=== PATIENT | male | born 1990 | race Caucasian/White ===

== ENCOUNTER 2018-09-29 20:47 | Emergency (ER) | payer OTHER, SELFPAY ==
[~2018-09-29] VITALS: Ht 177.8 cm; Wt 57.5 kg
[2018-09-29 21:17] VITALS: BP 105/66
== END 2018-09-29 22:22 | disposition left against medical advice (07) ==
LOC: ED 22:15
DX: R10.13 Epigastric pain (principal); Z53.21 Procedure and treatment not carried out due to patient leaving prior to being seen by health care provider

== ENCOUNTER 2019-12-20 18:41 | Emergency (ER) | payer MEDICAID, OTHER ==
[~2019-12-20] VITALS: Ht 180.3 cm; Wt 64.5 kg
[2019-12-20] MEDS ORDERED: ACETAMINOPHEN 325 MG TABLET ONE (19:30)
[2019-12-20] MEDS ORDERED: LIDOCAINE-MPF 1%, 5ML ONE (19:30)
[2019-12-20] MEDS ORDERED: ACETAMINOPHEN 325 MG TABLET PO ONE (19:30)
[2019-12-20] MEDS ORDERED: LIDOCAINE 1%, 10ML INFIL ONE (19:30)
[2019-12-20 20:25] VITALS: BP 138/82
--- NOTE | 2019-12-20 20:26 | NUR ---
Pt discharge with extra wound supplies, educated on the importance of getting antibotics and comging back in 2 days to get wound checked out. Patient stated that he understood.
== END 2019-12-20 20:28 | disposition home or self-care (01) ==
LOC: ED 19:17
DX: L02.414 Cutaneous abscess of left upper limb (principal); L03.114 Cellulitis of left upper limb
CPT/HCPCS: 10060; 99283; J3490

== ENCOUNTER 2019-12-23 22:34 | Emergency (ER) | payer MEDICAID ==
[~2019-12-23] VITALS: Ht 180.3 cm; Wt 62.7 kg
[2019-12-23 22:35] VITALS: BP 109/63
--- NOTE | 2019-12-23 23:00 | NUR ---
dressing applied, dc home with instruct. pt verbalizes understanding.
--- NOTE | 2019-12-23 23:31 | NUR ---
went to give pt dc instruct, pt gone. he did have wound dressed.
== END 2019-12-23 23:44 | disposition home or self-care (01) ==
LOC: ED 22:54
DX: Z48.01 Encounter for change or removal of surgical wound dressing (principal); F17.200 Nicotine dependence, unspecified, uncomplicated
CPT/HCPCS: 99281

== ENCOUNTER 2020-07-05 09:57 | Emergency (ER) | payer MEDICAID ==
[~2020-07-05] VITALS: Ht 180.3 cm; Wt 62.2 kg
[2020-07-05 09:59] VITALS: BP 117/69
== END 2020-07-05 11:17 | disposition left against medical advice (07) ==
LOC: ED 11:05
DX: R10.9 Unspecified abdominal pain (principal); M54.9 Dorsalgia, unspecified; Z53.21 Procedure and treatment not carried out due to patient leaving prior to being seen by health care provider